=== PATIENT | male | born 1980 | race Caucasian/White ===

== ENCOUNTER 2022-01-11 07:58 | Outpatient (CLI) | payer OTHER, SELFPAY ==
--- NOTE | 2022-01-27 13:41 | WPDSLEEPSTUD ---
Sleep Study Date of Study: 01/11/22 Ordering Provider: Chucky Farnsworth DO Interpreting Physician: Elizabeth Flor MD Sleep Study Type: Polysomnogram Height: 1.83 m Weight: 83.915 kg Body Mass Index: 25.0 Neck Circumference (inches): 15 [place]: 3 Reason for Sleep Study The patient requested a sleep study due to poor quality sleep, snoring and witnessed apnea. Sleep History Jono King is a 41 year old man who requested a sleep study due to snoring and witnessed apnea. When he wakes in the morning feels tired. His normal bedtime is 10:30 p.m. and he wakes up at 7:00 a.m.. He does not take naps. He does not become sleepy while driving the car. He he has pain radiating down his left leg with chronic low back pain. He did not complete a sleep questionnaire. [facility], [facility] Past Medical History Medical History (Updated 01/27/22 @ 13:50 by Elizabeth Flor MD) Allergies Chronic low back pain with left-sided sciatica Family History Family History Father Family history of elevated blood lipids Parkinson's disease Grandparent Family history of Alzheimer's disease Family history of malignant neoplasm of breast Diabetes mellitus Social History Social History Smoking status: Never smoker Second hand tobacco smoke exposure: No Alcohol intake: current Medications Home Medications Medication Instructions Recorded Confirmed Type albuterol sulfate 90 mcg/actuation 2 inh INHALATION Q4H PRN #6.7 g 05/03/21 12/21/21 Rx aerosol inhaler Sleep Procedure This test was performed using the [employer] multiple channel system including EOG, EEG, submental EMG, EKG, nasal and oral airflow using thermistors and nasal pressure sensors, chest and abdominal belts for body position data, and pulse oximetry. Video monitoring was also performed. The study was scored using [facility] guidelines. Sleep Architecture The recording time is 5 for 5.8 minutes. The total sleep time is 389.5 minutes. Sleep efficiency is 71.4%. Sleep latency is 5.8 minutes. REM latency is 171 minutes. He had 65 awakenings. The patient spent 27.9% the study awake after sleep onset. Sleep architecture showed 10.3% stage 1 sleep, 41.4% stage 2 sleep, 13.3% stage 3 sleep and 7.1% stage REM. He was in the supine position 31.9% of the night. Sleep was fragmented with constant shifts between wake, stage I and stage II. He had 3 REM cycles. Respiratory Analysis The apnea-hypopnea index is 1.8. In supine REM there were 5 obstructive hypopneas for an index of 9.4. In nonsupine REM there were no events. In supine non-REM there were 6 obstructive hypopneas for an index of 2.6. In nonsupine non-REM there was 1 obstructive hypopnea for an index of 0.3. The supine index is 3.8, nonsupine index is 0.3. Arousals There were a total of 202 arousals for an index of 22.2. There were 9 hypopneas causing arousal for an index of 1.0, 193 spontaneous arousals for an index of 21.2. Periodic Limb Movements There were no periodic limb movements. Oximetry Data The lowest saturation was 91%, mean saturation was 95%, and there were 12 desaturations of 4% or greater for an index of 1.3. No time was spent below 88%. Snoring Profile Snoring was loud. Cardiac Profile EKG showed normal sinus rhythm with a heart rate in the 60s and 70s. EEG Profile Unremarkable, no evidence of seizures. Assessment and Plan Assessment and Plan (1) Snoring: Code(s): R06.83 - Snoring Status: Acute Assessment and Plan: This basic nocturnal polysomnogram on January 11, 2022 does not show sleep disordered breathing. He has an apnea-hypopnea index of 1.8, it is positional and worse during REM. The supine index is 3.8, still normal, and the supine REM index is 9.4. His lowest saturation was 91%. His sleep was fragmented. Positional therapy can be conside
[2022-01-27 13:56] VITALS: BMI 25.0
== END 2022-01-12 06:36 | disposition home or self-care (01) ==
LOC: ANHCSM 07:59
PROVIDERS: PCP Internal Medicine; Visit Provider Internal Medicine
DX: G47.00 Insomnia, unspecified (principal); R06.83 Snoring
CPT/HCPCS: 95810

== ENCOUNTER 2023-05-11 08:40 | Outpatient (CLI) | payer OTHER, SELFPAY ==
[2023-05-11 11:30] LABS: Alanine Aminotransferase 33 U/L (6-50); Albumin Level 4.3 g/dL (3.5-5.1); Alkaline Phosphatase 65 U/L (38-126); Anion Gap 7 mmol/L (8-16); Aspartate Amino Transferase 68 U/L (17-59); Bilirubin,Total 0.8 mg/dL (0.2-1.3); Blood Urea Nitrogen 17 mg/dL (9-20); Carbon Dioxide 27 mmol/L (22-30); Chloride 104 mmol/L (98-107); Cholesterol 146 mg/dL (0-200); Estimated Glomerular Filt Rate > 60; Glucose 88 mg/dL (65-110); HDL Direct 29 mg/dL; Potassium 4.5 mmol/L (3.4-5.0); Sodium 138 mmol/L (137-145); Triglycerides 91 mg/dL (<150)
[2023-05-11 11:33] LABS: Basophils Absolute Auto 0.1 K/mm3 (0.0-0.1); Basophils Percent Auto 0.9 % (0.2-1.2); Eosinophils Absolute Auto 0.2 K/mm3 (0-0.3); Hematocrit 47.9 % (42.0-52.0); Hemoglobin 16.2 g/dL (14.0-18.0); Immature Granulocyte Absolute 0.01 K/mm3 (0.00-0.031); Immature Granulocyte Percent A 0.2 % (0-0.5); Lymphocytes Absolute Auto 1.94 K/mm3 (0.9-3.2); Lymphocytes Percent Auto 34.4 % (18.3-44.2); Mean Corpuscular HGB Conc 33.8 g/dl (32-36); Mean Corpuscular Hemoglobin 29.4 pg (26-34); Mean Corpuscular Volume 86.9 fl (80-100); Mean Platelet Volume 11.1 fl (7.4-10.4); Monocytes Absolute Auto 0.5 K/mm3 (0.1-0.6); Neutrophils Percent Auto 53.5 % (45.5-73.1); Platelet Count Result 233 k/mm3 (150-375); Red Blood Count 5.51 M/mm3 (4.6-6.20); Red Cell Distribution Width 12.6 % (11.5-14.5); White Blood Count 5.6 K/mm3 (4.5-10.0)
[2023-05-11 11:41] LABS: LDL Cholesterol Direct 91 mg/dL
== END 2023-05-11 08:41 | disposition home or self-care (01) ==
LOC: ANHGOSHLAB 08:42
PROVIDERS: PCP Internal Medicine; Visit Provider Nurse Practitioner
DX: F41.9 Anxiety disorder, unspecified (principal); Z13.220 Encounter for screening for lipoid disorders
CPT/HCPCS: 36415; 80053; 80061; 84443; 85025

== ENCOUNTER 2023-07-04 12:29 | Outpatient (CLI) | payer OTHER, SELFPAY ==
[2023-07-04 18:58] LABS: Alanine Aminotransferase 34 U/L (6-50); Albumin Level 4.4 g/dL (3.5-5.1); Alkaline Phosphatase 61 U/L (38-126); Aspartate Amino Transferase 32 U/L (17-59); Bilirubin,Total 0.7 mg/dL (0.2-1.3)
== END 2023-07-04 12:30 | disposition home or self-care (01) ==
LOC: ANHGOSHLAB 12:31
PROVIDERS: PCP Internal Medicine; Visit Provider Nurse Practitioner
DX: R74.8 Abnormal levels of other serum enzymes (principal)
CPT/HCPCS: 36415; 80076

== ENCOUNTER 2024-05-20 19:45 | Emergency (ER) | payer OTHER, SELFPAY ==
[2024-05-20 19:54] VITALS: BP 161/91; PULSE 89; RESP 19; TEMP 36.9; O2SAT 99
[2024-05-21 02:49] VITALS: BP 143/96; PULSE 72; RESP 16; TEMP 36.6; O2SAT 99
[2024-05-21] MEDS: KETOROLAC 30 MG/ML VIAL (*BKC) 15 MG IM (03:23)
--- NOTE | 2024-05-21 03:23 | ED.GENADULT ---
HPI - General Adult General Chief complaint: Extremity Injury, Lower Stated complaint: felt left calf pop Time Seen by Provider: 05/21/24 02:47 History of Present Illness HPI narrative: Patient is 43-year-old male who presents to the emergency department this evening after pulling a muscle in his left calf. 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 Patient states that he was not doing anything strenuous but did admit that he ran 4 miles yesterday doing a lot of splints which he has not done in a while and believes that maybe that is what precipitated the symptoms. Patient states that he has been icing his left calf with minimal improvement of pain. Denies any additional symptoms or concerns at this time. Related Data Allergies Allergy/AdvReac Type Severity Reaction Status Date / Time No Known Allergies Allergy Unverified 06/29/23 07:44 Review of Systems Review of Systems: All systems are reviewed and are negative unless stated otherwise in the HPI. FOR[facility]LY [facility], [facility] Past Medical History Medical History Allergies Chronic low back pain with left-sided sciatica Erectile dysfunction Family History Family History Father Family history of elevated blood lipids Parkinson's disease Grandparent Family history of Alzheimer's disease Family history of malignant neoplasm of breast Diabetes mellitus Social History Social History Smoking status: Never smoker Second hand tobacco smoke exposure: No Alcohol intake: current Substance use: never Substance use type: does not use Lack of Transportation: No Lack of Food: Never True Current Housing: I Have Housing Concerned About Future Housing: No Difficulty Paying Gas/Electric Bills: No Difficulty Paying for Meds: No Currently Unemployed: No Education: Bachelor's Degree Difficulty w/ Childcare or Family Care: No Exam Narrative: General: Alert, awake, afebrile, in no acute distress. HEENT: PERRL, no rhinorrhea, no post nasal drip, oropharynx clear. Cardiovascular: Regular rate and rhythm, no murmurs, rubs or gallops, no peripheral edema. Respiratory: Clear to auscultation bilaterally, no tachypnea, no wheezing, no rhonchi, no rubs, no respiratory distress. Abdomen: Soft, nontender, nondistended, no rebound, no guarding, no peritoneal signs. Musculoskeletal: No joint swelling or deformity, normal muscle tone, non reproducible tenderness over calf region, compartment soft and compressible. Skin: No rashes or petechia, no signs of infection. Neurological: Alert and oriented to person, place, and time. Follows all commands. No focal deficits, speech is clear and fluent. Course Vital Signs Vital signs: Vital Signs Temperature 98.4 F 05/20/24 19:54 Pulse Rate 89 05/20/24 19:54 Respiratory Rate 19 05/20/24 19:54 Blood Pressure 161/91 H 05/20/24 19:54 Pulse Oximetry 99 05/20/24 19:54 Oxygen Delivery Room Air 05/20/24 19:54 Temperature 98 F 05/21/24 02:49 Pulse Rate 72 05/21/24 02:49 Respiratory Rate 16 05/21/24 02:49 Blood Pressure 143/96 H 05/21/24 02:49 Pulse Oximetry 99 05/21/24 02:49 Oxygen Delivery Room Air 05/20/24 19:54 Medical Decision Making MDM Narrative Medical decision making narrative: The patient was evaluated by myself in the emergency department. History is obtained from patient who is an independent historian and physical exam was performed. External medical records were reviewed at this time. Patient was administered 15 mg of IM Toradol for pain. At this time shared medical decision-making with patient regarding obtaining imaging results was discussed and patient was informed that imaging studies are not going to provide us with i
== END 2024-05-21 03:33 | disposition home or self-care (01) ==
PROVIDERS: Emergency Provider Emergency Medicine; PCP Internal Medicine
DX: S86.912A Strain of unspecified muscle(s) and tendon(s) at lower leg level, left leg, initial encounter (principal); X50.0XXA Overexertion from strenuous movement or load, initial encounter
CPT/HCPCS: 96372; 99283; J1885

== ENCOUNTER 2024-09-12 12:31 | Outpatient (CLI) | payer OTHER, SELFPAY ==
[2024-09-12 19:45] LABS: Basophils Absolute Auto 0.1 K/mm3 (0.0-0.1); Basophils Percent Auto 1.3 % (0.2-1.2); Eosinophils Absolute Auto 0.2 K/mm3 (0-0.3); Eosinophils Percent Auto 2.9 % (0-4.4); Immature Granulocyte Absolute 0.01 K/mm3 (0.00-0.031); Immature Granulocyte Percent A 0.1 % (0-0.5); Lymphocytes Absolute Auto 2.35 K/mm3 (0.9-3.2); Lymphocytes Percent Auto 33.9 % (18.3-44.2); Mean Corpuscular HGB Conc 33.3 g/dl (32-36); Mean Corpuscular Volume 87.1 fl (80-100); Mean Platelet Volume 11.3 fl (7.4-10.4); Monocytes Absolute Auto 0.6 K/mm3 (0.1-0.6); Monocytes Percent Auto 8.1 % (2.6-8.5); Neutrophils Absolute Auto 3.7 K/mm3 (1.3-6.7); Neutrophils Percent Auto 53.7 % (45.5-73.1); Platelet Count Result 236 k/mm3 (150-375); Red Blood Count 5.51 M/mm3 (4.6-6.20); Red Cell Distribution Width 13.3 % (11.5-14.5); White Blood Count 6.9 K/mm3 (4.5-10.0)
[2024-09-12 20:06] LABS: Alanine Aminotransferase 74 U/L (6-50); Albumin Level 4.5 g/dL (3.5-5.1); Alkaline Phosphatase 65 U/L (38-126); Anion Gap 6 mmol/L (4-12); Aspartate Amino Transferase 75 U/L (17-59); Bilirubin,Total 1.1 mg/dL (0.2-1.3); Blood Urea Nitrogen 12 mg/dL (9-20); Carbon Dioxide 30 mmol/L (22-30); Chloride 104 mmol/L (98-107); Cholesterol 139 mg/dL (0-200); Estimated Glomerular Filt Rate > 60; Glucose 70 mg/dL (65-110); HDL Direct 25 mg/dL; Potassium 4.5 mmol/L (3.4-5.0); Sodium 140 mmol/L (137-145); Triglycerides 172 mg/dL (<150)
[2024-09-12 20:17] LABS: LDL Cholesterol Direct 77 mg/dL
== END 2024-09-12 12:32 | disposition home or self-care (01) ==
LOC: ANHGOSHLAB 12:33
PROVIDERS: PCP Internal Medicine; Visit Provider Clinical Nurse Specialist
DX: F41.9 Anxiety disorder, unspecified (principal); Z13.220 Encounter for screening for lipoid disorders; Z13.228 Encounter for screening for other metabolic disorders; R53.83 Other fatigue
CPT/HCPCS: 36415; 80053; 80061; 82607; 84443; 85025

== ENCOUNTER 2024-10-14 09:01 | Outpatient (CLI) | payer OTHER, SELFPAY ==
[2024-10-14 13:33] LABS: Alanine Aminotransferase 46 U/L (6-50); Albumin Level 4.2 g/dL (3.5-5.1); Alkaline Phosphatase 71 U/L (38-126); Anion Gap 9 mmol/L (4-12); Aspartate Amino Transferase 54 U/L (17-59); Bilirubin,Total 0.6 mg/dL (0.2-1.3); Blood Urea Nitrogen 17 mg/dL (9-20); Calcium 8.9 mg/dL (8.4-10.2); Carbon Dioxide 28 mmol/L (22-30); Chloride 104 mmol/L (98-107); Estimated Glomerular Filt Rate > 60; Glucose 87 mg/dL (65-110); Potassium 4.3 mmol/L (3.4-5.0); Sodium 141 mmol/L (137-145)
[2024-10-14 13:38] LABS: Iron 110 ug/dL (49-181)
[2024-10-14 14:03] LABS: Percent Iron Saturation 38 % (20-50)
[2024-10-14 14:07] LABS: Hepatitis B Surface Antigen Negative (Negative)
[2024-10-14 14:19] LABS: HIV 1/2 Ab P24 Ag Result Negative (Negative)
[2024-10-14 14:24] LABS: Hepatitis C Virus Antibody Negative (Negative)
== END 2024-10-14 09:02 | disposition home or self-care (01) ==
LOC: ANHGOSHLAB 09:02
PROVIDERS: PCP Internal Medicine; Visit Provider Clinical Nurse Specialist
DX: R74.01 Elevation of levels of liver transaminase levels (principal); R74.8 Abnormal levels of other serum enzymes
CPT/HCPCS: 36415; 80053; 82728; 82784; 83540; 83550; 86364; 86703; 86803; 87340; G0432

== ENCOUNTER 2024-10-17 09:17 | Outpatient (CLI) | payer OTHER, SELFPAY ==
--- NOTE | ~2024-10-17 | US_ITS ---
Limited Abdominal Sonogram: Real-time sonographic imaging of the right upper quadrant was performed. Clinical History: Abnormal liver enzymes Findings: The liver appears echogenic with no evidence of mass lesion or bile duct dilatation. Main portal vein demonstrates normal direction of flow. The gallbladder is well distended, and appears nor mal with no evidence of gallstone or wall thickening. The common bile duct measures 4 mm. The visual ized pancreas, aorta, and IVC are unremarkable. Right kidney appears unremarkable, aside from cyst. Impression: Diffuse fatty infiltration of the liver. Reviewed, dictated and finalized at location M. PS [employer] Impression: Diffuse fatty infiltration of the liver.
== END 2024-10-17 09:18 | disposition home or self-care (01) ==
LOC: MICIMG 09:17
PROVIDERS: PCP Internal Medicine; Visit Provider Clinical Nurse Specialist
DX: R74.01 Elevation of levels of liver transaminase levels (principal); K76.0 Fatty (change of) liver, not elsewhere classified
CPT/HCPCS: 76705